=== PATIENT | male | born 1955 | race Caucasian/White ===

== ENCOUNTER 2016-09-29 13:00 | Emergency (ER) | payer OTHER ==
--- NOTE | 2016-09-29 15:10 | ED ORDER SUMMARY ---
..... Patient: UMESH RAMAN OrderSheet [facility] VisitID: [id number] [place] [address] 61y, M Registration Date/Time: 09/29/2016 ORDER SHEET Weight: 65.7 kg (estimated) Allergies: No Known Drug Allergy GENERAL ORDERS: UA-Culture if indicated Urgent (13:08 09/29/2016 EKoroleva P.A.-C) (Ack 13:10 LMuller) (14:30 HOShaughnessy R.N.) Breathalyzer (13:08 09/29/2016 EKoroleva P.A.-C) (Ack 13:10 LMuller) (Cancelled: Other13:23 EKoroleva P.A.-C) CBC w Diff Urgent (13:22 09/29/2016 EKoroleva P.A.-C) (Ack 13:28 LMuller) (14:18 HOShaughnessy R.N.) CMP Urgent (13:22 09/29/2016 EKoroleva P.A.-C) (Ack 13:28 LMuller) (14:18 HOShaughnessy R.N.) Breathalyzer (13:22 09/29/2016 EKoroleva P.A.-C) (Cancelled: Other13:22 EKoroleva P.A.-C) Ethyl Alcohol Urgent (13:33 09/29/2016 EKoroleva P.A.-C) (Ack 13:36 LMuller) (14:18 HOShaughnessy R.N.) Urine Drug Screen Urgent (14:12 09/29/2016 EKoroleva P.A.-C) (Ack 14:20 LMuller) (14:30 HOShaughnessy R.N.) MEDICATION ORDERS: Toradol IM 60 mg (NOW) (14:11 09/29/2016 EKoroleva P.A.-C) (14:30 HOShaughnessy R.N.) IV FLUIDS: ORDER SHEET NOTES: [Electronically signed by Karyn Rosario P.A.-C (15:30 09/29/2016)] [Electronically signed by Aureliano Nazario R.N. (15:42 09/29/2016)] [Electronically locked/signed by Aureliano Nazario R.N. (15:42 09/29/2016)]
--- NOTE | 2016-09-29 15:10 | ED ORDER SUMMARY ---
..... Patient: UMESH RAMAN OrderSheet [facility] VisitID: [id number] [place] [address] 61y, M Registration Date/Time: 09/29/2016 ORDER SHEET Weight: 65.7 kg (estimated) Allergies: No Known Drug Allergy GENERAL ORDERS: UA-Culture if indicated Urgent (13:08 09/29/2016 EKoroleva P.A.-C) (Ack 13:10 LMuller) (14:30 HOShaughnessy R.N.) Breathalyzer (13:08 09/29/2016 EKoroleva P.A.-C) (Ack 13:10 LMuller) (Cancelled: Other13:23 EKoroleva P.A.-C) CBC w Diff Urgent (13:22 09/29/2016 EKoroleva P.A.-C) (Ack 13:28 LMuller) (14:18 HOShaughnessy R.N.) CMP Urgent (13:22 09/29/2016 EKoroleva P.A.-C) (Ack 13:28 LMuller) (14:18 HOShaughnessy R.N.) Breathalyzer (13:22 09/29/2016 EKoroleva P.A.-C) (Cancelled: Other13:22 EKoroleva P.A.-C) Ethyl Alcohol Urgent (13:33 09/29/2016 EKoroleva P.A.-C) (Ack 13:36 LMuller) (14:18 HOShaughnessy R.N.) Urine Drug Screen Urgent (14:12 09/29/2016 EKoroleva P.A.-C) (Ack 14:20 LMuller) (14:30 HOShaughnessy R.N.) MEDICATION ORDERS: Toradol IM 60 mg (NOW) (14:11 09/29/2016 EKoroleva P.A.-C) (14:30 HOShaughnessy R.N.) IV FLUIDS: ORDER SHEET NOTES: [Electronically signed by Karyn Rosario P.A.-C (15:30 09/29/2016)] [Electronically signed by Aureliano Nazario R.N. (15:42 09/29/2016)] [Electronically locked/signed by Aureliano Nazario R.N. (15:42 09/29/2016)]
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
--- NOTE | 2016-09-29 15:42 | ED MAR SUMMARY ---
..... Medication Administration Record [facility] [address] [place] [address] Patient: UMESH RAMAN Visit ID: [id number] 61y, M Weight: 65.7 kg Height/Length: 71 in BMI: 20.2 ALLERGIES: No Known Drug Allergy Given 14:30 09/29/2016 Aureliano Nazario, RBerlinNBerlin Medication Administered: TORADOL [IM] (KETOROLAC TROMETHAMINE), Dose: 60 mg IM. Medication Ordered: Toradol IM 60 mg (NOW).
--- NOTE | 2016-09-29 15:42 | ED MAR SUMMARY ---
..... Medication Administration Record [facility] [address] [place] [address] Patient: UMESH RAMAN Visit ID: [id number] 61y, M Weight: 65.7 kg Height/Length: 71 in BMI: 20.2 ALLERGIES: No Known Drug Allergy Given 14:30 09/29/2016 Aureliano Nazario, RBerlinNBerlin Medication Administered: TORADOL [IM] (KETOROLAC TROMETHAMINE), Dose: 60 mg IM. Medication Ordered: Toradol IM 60 mg (NOW).
--- NOTE | 2016-09-29 15:42 | ED MED RECONCILIATION SUMMARY ---
Patient: UMESH RAMAN Medication Reconciliation Report [facility] VisitID: [id number] [place] [address] 61y, M Registration Date/Time: 09/29/2016 Weight: 65.7 kg Height/Length: 71 in. BMI: 20.2 ALLERGIES: No Known Drug Allergy The patient's Home Medications are listed below: THE FOLLOWING MEDICATIONS NEED TO BE RECONCILED: Carbidopa-Levodopa Oral Pyridostigmine [place] ER Oral The source(s) of the original Home Medication information: Not obtained. The following Medications were given to the patient in the Emergency Department: Toradol [IM] IM 60 mg, administered: 09/29/2016 2:30:00 PM The following Medications were prescribed to the patient: Ibuprofen 800 mg tablets: take 1 tablet orally every 8 hours for 5 days. Dispense fifteen (15). No refill. -- Karyn Rosario, PBerlinABerlin-C
--- NOTE | 2016-09-29 15:42 | ED DISCHARGE INSTRUCTIONS ---
Patient: UMESH RAMAN General Instructions [facility] VisitID: [id number] [place] [address] 61y, M Registration Date/Time: 09/29/2016 Chronic lumbar back pain. INSTRUCTIONS Apply ice. Rest. Prescription Medications: Ibuprofen 800 mg tablets: take 1 tablet orally every 8 hours for 5 days. Dispense fifteen (15). No refill. Follow-up: Follow up with your doctor Tuesday in three days. Understanding of the discharge instructions verbalized by patient. ADDITIONAL INFORMATION Back Pain [Acute Or Chronic] Back pain is usually caused by an injury to the muscles or ligaments of the spine. Sometimes the disks that separate each bone in the spine may bulge and cause pain by pressing on a nearby nerve. Back pain may also appear after a sudden twisting/bending force (such as in a car accident), after a simple awkward movement, or lifting something heavy with poor body positioning. In either case, muscle spasm is often present and adds to the pain. Acute back pain usually gets better in one to two weeks. Back pain related to disk disease, arthritis in the spinal joints or spinal stenosis (narrowing of the spinal canal) can become chronic and last for months or years. Unless you had a physical injury (for example, a car accident or fall) X-rays are usually not ordered for the initial evaluation of back pain. If pain continues and does not respond to medical treatment, x-rays and other tests may be performed at a later time. Home Care: You may need to stay in bed the first few days. But, as soon as possible, begin sitting or walking to avoid problems with prolonged bed rest (muscle weakness, worsening back stiffness and pain, blood clots in the legs). When in bed, try to find a position of comfort. A firm mattress is best. Try lying flat on your back with pillows under your knees. You can also try lying on your side with your knees bent up towards your chest and a pillow between your knees. Avoid prolonged sitting. This puts more stress on the lower back than standing or walking. During the first two days after injury, apply an ICE PACK to the painful area for 20 minutes every 2-4 hours. This will reduce swelling and pain. HEAT (hot shower, hot bath or heating pad) works well for muscle spasm. You can start with ice, then switch to heat after two days. Some patients feel best alternating ice and heat treatments. Use the one method that feels the best to you. You may use acetaminophen (Tylenol) or ibuprofen (Motrin, Advil) to control pain, unless another pain medicine was prescribed. [NOTE: If you have chronic liver or kidney disease or ever had a stomach ulcer or GI bleeding, talk with your doctor before using these medicines.] Be aware of safe lifting methods and do not lift anything over 15 pounds until all the pain is gone. Follow Up with your doctor or this facility if your symptoms do not start to improve after one week. Physical therapy may be needed. [NOTE: If X-rays were taken, they will be reviewed by a radiologist. You will be notified of any new findings that may affect your care.] Get Prompt Medical Attention if any of the following occur: Pain becomes worse or spreads to your legs Weakness or numbness in one or both legs Loss of bowel or bladder control Numbness in the groin or genital area Alcohol Intoxication Alcohol intoxication occurs when you drink alcohol faster than your liver can remove it from your system. Alcohol intoxication affects your judgment and coordination. Very high blood alcohol levels can cause coma, very slow breathing and even . If you drink alcohol every day, this may gradually cause permanent damage to your liver, brain, heart, pancreas and other organs. Alcohol use during may cause permanent damage to the growing baby. Home Care: Do not drink any more alcohol. DO NOT DRIVE until all effects of the alcohol have worn off. Get lots of rest over the next few days. Drink plenty of water and other non-alcoholic liquids. Try to eat regular meals. If you have been drinking heavily on a daily basis, you may go through alcohol withdrawl. This is also called the shakes or DTs. The usual symptoms last 3 to 4 days and may include nervousness, shakiness, nausea, sweating or sleeplessness. During this time, it is best that you stay with family or friends who can help and support you. You can also admit yourself to a residential detox program. If your symptoms are severe, contact your doctor for medicines to help. Follow Up: If alcohol is causing a problem in your life, these and other organizations can help you: Alcoholics Anonymous offers support through a self-help fellowship. There are no dues or fees. See the Yellow Pages and call for time and place of meetings. www.aa.org Al-Anon offers support to families of alcohol users. 960.510.9228 www.al-anon.org [employer] [place] On Alcoholism And Drug Dependence 458-256-4412 www.ncadd.org There are also inpatient or residential alcohol detox programs. Check the Internet or phonebook Yellow Pages under Drug Abuse & Treatment Centers. Get Prompt Medical Attention if any of the following occur: there) Alcohol Withdrawal Alcohol withdrawal symptoms occur if you have been drinking steadily for at least several days, and your body gets used to the effect of alcohol. When you suddenly stop drinking (or, even just cut down your daily intake but continue to drink), you may develop alcohol withdrawal, also called the The usual symptoms last 3-4 days and include nervousness, shakiness, nausea, sweating, sleeplessness. In severe cases hallucinations (seeing things that are not there) and seizures can occur. Home Care: You will need plenty of rest and fluids over the next several days. Eat regular meals. Of course, do not drink any more alcohol. During this time, it is best that you stay with family or friends who can help and support you. You can also admit yourself to a residential detox program. Do not drive until all symptoms are gone and you are feeling better. If you were given sedative medication to reduce your symptoms, do not take it more often than prescribed and never take it with alcohol. Follow Up: Once you have gone through the withdrawal symptoms, you have fought half of the cano. To avoid the risk of returning to your previous drinking pattern, it is essential that you get follow-up support and treatment. Alcoholics Anonymous offers support through a self-help fellowship. There are no dues or fees. See the Yellow Pages and call for time and place of meetings. www.aa.org Al-Anon offers support to families of alcohol users. 686.177.3511 www.al-anon.org [employer] [place] On Alcoholism And Drug Dependence 053-953-2127 www.ncadd.org Residential alcohol detox programs are available. Check the Yellow Pages under Drug Abuse & Treatment Centers. Get Prompt Medical Attention if any of the following occur: Severe shakiness Hallucinations Seizure Fever over 100.5 F (38.0 C) oral Headache, confusion, extreme drowsiness, inability to awaken Increasing upper abdominal pain Repeated vomiting or vomiting blood Ibuprofen Oral tablet What is this medicine? IBUPROFEN (eye BYOO proe fen) is a non-steroidal anti-inflammatory drug (NSAID). It is used for dental pain, fever, headaches or migraines, osteoarthritis, rheumatoid arthritis, or painful monthly periods. It can also relieve minor aches and pains caused by a cold, flu, or sore throat. How should I use this medicine? Take this medicine by mouth with a glass of water. Follow the directions on the prescription label. Take this medicine with food if your stomach gets upset. Try to not lie down for at least 10 minutes after you take the medicine. Take your medicine at regular intervals. Do not take your medicine more often than directed. A special MedGuide will be given to you by the pharmacist with each prescription and refill. Be sure to read this information carefully each time. Talk to your instrumentation and control technician regarding the use of this medicine in children. Special care may be needed. What side effects may I notice from receiving this medicine? Side effects that you should report to your doctor or health career guidance technician as soon as possible: allergic reactions like skin rash, itching or hives, swelling of the face, lips, or tongue black or bloody stools, blood in the urine or in vomit breathing problems changes in vision chest pain general ill feeling or flu-like symptoms nausea or vomiting redness, blistering, peeling or loosening of the skin, including inside the mouth slurred speech or weakness on one side of the body stomach pain unexplained weight gain or swelling unusually weak or tired yellowing of eyes or skin Side effects that usually do not require medical attention (report to your doctor or health career guidance technician if they continue or are bothersome): constipation or diarrhea dizziness gas or heartburn stomach upset What may interact with this medicine? Do not take this medicine with any of the following medications: cidofovir ketorolac methotrexate pemetrexed This medicine may also interact with the following medications: alcohol aspirin diuretics lithium other drugs for inflammation like prednisone warfarin What if I miss a dose? If you miss a dose, take it as soon as you can. If it is almost time for your next dose, take only that dose. Do not take double or extra doses. Where should I keep my medicine? Keep out of the reach of children. Store at room temperature between 15 and 30 degrees C (59 and 86 degrees F). Keep container tightly closed. Throw away any unused medicine after the expiration date. What should I tell my health care provider before I take this medicine? They need to know if you have any of these conditions: asthma cigarette smoker drink more than 3 alcohol containing drinks a day heart disease or circulation problems such as heart failure or leg edema (fluid retention) high blood pressure kidney disease liver disease stomach bleeding or ulcers an unusual or allergic reaction to ibuprofen, aspirin, other NSAIDS, other medicines, foods, dyes, or preservatives or trying to get breast-feeding What should I watch for while using this medicine? Tell your doctor or healthcare professional if your symptoms do not start to get better or if they get worse. This medicine does not prevent heart attack or stroke. In fact, this medicine may increase the chance of a heart attack or stroke. The chance may increase with longer use of this medicine and in people who have heart disease. If you take aspirin to prevent heart attack or stroke, talk with your doctor or health career guidance technician. Do not take other medicines that contain aspirin, ibuprofen, or naproxen with this medicine. Side effects such as stomach upset, nausea, or ulcers may be more likely to occur. Many medicines available without a prescription should not be taken with this medicine. This medicine can cause ulcers and bleeding in the stomach and intestines at any time during treatment. Ulcers and bleeding can happen without warning symptoms and can cause . To reduce your risk, do not smoke cigarettes or drink alcohol while you are taking this medicine. You may get drowsy or dizzy. Do not drive, use machinery, or do anything that needs mental alertness until you know how this medicine affects you. Do not stand or sit up quickly, especially if you are an older patient. This reduces the risk of dizzy or fainting spells. This medicine can cause you to bleed more easily. Try to avoid damage to your teeth and gums when you brush or floss your teeth. You have been given the following additional information: Back Pain (Acute Or Chronic) Alcohol Intoxication Alcohol Withdrawal Ibuprofen Oral tablet Rest. (Electronically signed by Karyn Rosario P.A.-C 09/29/2016 15:30)
--- NOTE | 2016-09-29 15:42 | ED MED RECONCILIATION SUMMARY ---
Patient: UMESH RAMAN Medication Reconciliation Report [facility] VisitID: [id number] [place] [address] 61y, M Registration Date/Time: 09/29/2016 Weight: 65.7 kg Height/Length: 71 in. BMI: 20.2 ALLERGIES: No Known Drug Allergy The patient's Home Medications are listed below: THE FOLLOWING MEDICATIONS NEED TO BE RECONCILED: Carbidopa-Levodopa Oral Pyridostigmine [place] ER Oral The source(s) of the original Home Medication information: Not obtained. The following Medications were given to the patient in the Emergency Department: Toradol [IM] IM 60 mg, administered: 09/29/2016 2:30:00 PM The following Medications were prescribed to the patient: Ibuprofen 800 mg tablets: take 1 tablet orally every 8 hours for 5 days. Dispense fifteen (15). No refill. -- Karyn Rosario, PBerlinABerlin-C
== END 2016-09-29 15:40 | disposition home or self-care (01) ==
LOC: ED SRH 13:00
DX: G89.29 Other chronic pain (principal); M54.5 Low back pain
CPT/HCPCS: 90004; 90074; 90100; 92010; 92760; 92761; 92762; 92763; 92764; 92765; 92766; 92767; 95059

== ENCOUNTER 2016-10-09 19:04 | Emergency (ER) | payer OTHER ==
--- NOTE | 2016-10-09 19:41 | DIAGNOSTIC IMAGING REPORT ---
PROCEDURE: CT HEAD WITHOUT CONTRAST INDICATION: Ground level fall with headache, initial encounter TECHNIQUE: Noncontrast axial images with sagittal and coronal reformations. COMPARISON: Head CT 08/23/2016. FINDINGS: Mild cortical atrophy and mild white matter chronic ischemic changes. Ventricular system is normal. No evidence of acute intracranial process. Visualized mastoids and sinuses are clear. IMPRESSION: 1. No acute intracranial abnormality 2. Mild atrophy and white matter chronic ischemic changes 3. Findings discussed with Mario BEACH, at 07:40 p.m., [facility] Time
--- NOTE | 2016-10-09 22:38 | ED ORDER SUMMARY ---
..... Patient: UMESH RAMAN OrderSheet [facility] VisitID: [id number] [address] [place] [address] 61y, M Registration Date/Time: 10/09/2016 ORDER SHEET Weight: 56.6 kg (stated) Allergies: No Known Drug Allergy GENERAL ORDERS: CT Head wo Cont Urgent (19:12 10/09/2016 EKoroleva P.A.-C) (Ack 19:18 ALawrence ER Tech1) (19:38 RFay) CBC w Diff Urgent (19:12 10/09/2016 EKoroleva P.A.-C) (Ack 19:18 ALawrence ER Tech1) (20:26 JDeElena R.N.) BMP Urgent (19:12 10/09/2016 EKoroleva P.A.-C) (Ack 19:18 ALawrence ER Tech1) (20:26 JDeElena R.N.) Ethyl Alcohol Urgent (19:12 10/09/2016 EKoroleva P.A.-C) (Ack 19:18 ALawrence ER Tech1) (20:26 JDeElena R.N.) MEDICATION ORDERS: IV FLUIDS: IV NS with Folic Acid 1 mg/L, Thiamine HCl 100 mg/L: initial bolus 1000 mL (1000 mL/hr), then 1000 mL/hr for X1 (NOW); Vini (20:34 10/09/2016 EKoroleva P.A.-C) (Ack 20:41 HSoule) (21:01 HSoule) Multivitamin IV 10 mL (NOW) (20:49 10/09/2016 EKoroleva P.A.-C) (Cancelled: Other medication added to fluids and infused with other additives 21:02 HSoule) ORDER SHEET NOTES: [Electronically signed by Doug Honeycutt R.N. (01:14 10/10/2016)] [Electronically signed by Karyn Rosario P.A.-C (13:43 10/10/2016)] [Electronically locked/signed by Doug Honeycutt R.N. (:14 10/10/2016)]
--- NOTE | 2016-10-09 22:38 | ED NURSING NOTES ---
Clinical Report - Nurses Merged With [facility] [place] [address] 10/09/2016 19:03 [id number] Triage time 19:00 Oct 09 2016. Acuity: LEVEL 4. Chief Complaint: (Back Pain). SEPSIS SCREEN: Sepsis Screen: negative. Negative (no infection suspected/documented). JOANNA COMA SCORE: [place] Coma Scale: 15- eyes open spontaneously (4); best verbal response- oriented x 4 (5); best motor response- obeys commands (6). --19:17 Zainab Pratt 19:09 10/09/16. BP: 102/77. HR: 82. RR: 20. O2 saturation: 98% on room air. Pain level now: 06/07. --19:17 Zainab Pratt. Weight: 56.6 kg stated. Height/Length: 70 inches Per Patient. BMI: 17.9. --19:14 Zainab Pratt. Medications Carbidopa-Levodopa Oral. --19:12 Zainab Pratt Pyridostigmine [place] ER Oral. --19:12 Zainab Pratt Multivitamins Oral. --20:27 Doug Honeycutt RBerlinN. Medication/allergy information source: the patient and EMS. --19:17 Zainab Pratt. Allergies No Known Drug Allergy. --19:12 Zainab Pratt. History Arrived by EMS. Historian: EMS and patient. Unaccompanied. Primary physician (none). This is a recurrent problem. ( Patient arrived to ER with EMS and reports back pain in his lumbar sacral area. He reports Parkinson's disease as well as chronic alcohol use to manage his pain. EMS reports they were called for pain as well as nausea. Patient denies nausea but is dry heaving at bedside. Patient agitated with nursing staff for asking questions and states, "I am getting tired of this".). Treatment SQL PROGRAMMER: EMS treatment SQL PROGRAMMER verbally communicated and report reviewed. See report. ( EMS reports finding additional meds at patient home including temazepam and hydrocodone. EMS report patient also has albuterol inhaler at bedside but patient denies use of this med.). PAST MEDICAL HX: Immunizations: up-to-date. SOCIAL HX: Heavy tobacco smoker (cigarette)- 1 pack per day. Heavy alcohol use. Patient is a longstanding alcoholic. Patient smells of ETOH in the emergency department. No infectious disease exposure. ABUSE ASSESSMENT: No report of abuse. NUTRITIONAL RISK ASSESSMENT: The nutritional risk assessment revealed no deficiencies. LEARNING NEEDS ASSESSMENT: The learning needs assessment revealed no barriers. FALL RISK ASSESSMENT: Fall risk assessment completed. Risk factors identified include patient history of fall and impairment of mobility. Fall interventions initiated. Patient placed on stretcher. Side rails up x1. Brakes on Bed in low position. Patient visible from nurses' station. Call light in reach of patient. Instructed not to get up without assistance. FUNCTIONAL ASSESSMENT: Functional assessment performed: independent with the activities of daily living; mobility impairment present- this mobility impairment is an ongoing problem. Electric scooter. SKIN INTEGRITY ASSESSMENT: Skin integrity risk assessment completed. No skin integrity risk identified. --19:17 Zainab Pratt. PROBLEMS: Back Pain. Gallbladder Disease. Abnormal Liver Function Test. COPD - Chronic Obstructive Pulmonary Disease. Parkinson's Disease. Atrial Fibrillation. Lifestyle / Substance Problems. Meniere's Syndrome. Lung Disease. Neurological Disease. Alcoholism. Head Injury. Fall. Alcohol Intoxication. --19:13 Zainab Pratt. ADDITIONAL SURGERIES: Ankle surgery. Shoulder Surgery. --19:13 Zainab Pratt. Interventions ID band on patient. To treatment room. --19:17 Zainab Pratt. PHYSICAL ASSESSMENT To room via stretcher. Patient gowned. GENERAL / NEURO / PSYCH: Alert. He smells of alcohol and appears agitated. The patient is disoriented to situation. Mood/affect abnormal (frustrated). HEENT: No facial asymmetry noted. Mucous membranes are pink. RESPIRATORY: Respirations not labored. CVS: Normal sinus rhythm noted. GI / : Abdomen soft and nontender. SKIN: Skin is warm and dry. --19:19 Zainab Pratt. NURSING PROGRESS NOTES Pulse oximeter and NIBP monitor placed on patient; monitor alarms on. Patient gowned. Reassurance given to the patient. Patient transported to radiology by stretcher with [employer] (19:15 Oct 09 2016). Two patient identifiers checked. Call light placed in reach. Side rails up x 1. Bed placed in lowest position. Brakes of bed on. Patient ready for evaluation- chart flagged and ED physician notified. --19:19 Zainab Pratt ( Patient given PO fluids). --19:55 Zainab Pratt Assisted patient to bedside commode and back to bed; tolerated well. --20:26 Doug Honeycutt R.N. 20:51 10/09/2016 Site #1 started via IV in the right forearm with an 20g angiocath, with aseptic technique and good blood return; one attempt. Blood drawn. Saline lock flushed with 10 mL saline. --21:01 Zainab Pratt 21:01 10/09/2016 Started bag #1 1000 mL IV Fluids IV NS (Saline); at 1000 mL/hr with Multivitamin [IVPB] 1unit dose, Folic Acid [IVPB] 1mg and Thiamine [IVP] 100mg over 1 hour(s) via site #1. Allergies verified and confirmed 5 rights. IV patency established. IV site checked: no pain, redness, or swelling. IV flushed thoroughly pre- and post-medication administration. --21:01 Zainab Pratt 21:02 10/09/16. BP: 98/60. HR: 83. RR: 20. O2 saturation: 100% on room air. Pain level now: 06/07. --21:02 Zainab Pratt The patient is resting quietly and sleeping. --22:05 Zainab Pratt 22:00 10/09/2016 IV Fluids IV NS Discontinued: bag #1 completed. Total amount infused: 1000 mL. IV patency established. IV site checked: no pain, redness, or swelling. IV flushed thoroughly. --22:14 Zainab Pratt 22:14 10/09/2016 Started bag #2 1000 mL IV Fluids IV NS (Saline); at 1000 mL/hr over 1 hour(s) via site #1. Allergies verified and confirmed 5 rights. IV patency established. IV site checked: no pain, redness, or swelling. IV flushed thoroughly pre- and post-medication administration. --22:14 Zainab Pratt 22:14 10/09/16. BP: 90/60. HR: 78. RR: 20. O2 saturation: 98% on room air. Pain level now: 06/07. --22:14 Zainab Pratt ( Warm blankets applied to lower back). --22:14 Zainab Pratt 23:40 10/09/16. BP: 96/64. HR: 66. RR: 20. O2 saturation: 96% on room air. Pain level now: 02/05. --23:48 Zainab Pratt ( Provider aware of vitals). --23:48 Zainab Pratt 23:15 10/09/2016 IV Fluids IV NS Discontinued: bag #2 completed. Total amount infused: 1000 mL. IV patency established. IV site checked: no pain, redness, or swelling. IV flushed thoroughly. --23:48 Zainab Pratt. DISPOSITION / DISCHARGE Departure time: 0106. Condition at departure: improved and stable. The goals identified in the patient's plan of care were met. No learning barriers present. Discharge instructions provided and reviewed with the patient. Activity restrictions (rest) reviewed. Patient verbalized understanding. Written instructions provided in Romanian. ( Umesh verbalizes understanding of all d/c instructions including need to f/u with PCP. He has no questions and voices no concerns at this time.). The patient was discharged by the physician. He was discharged home and unaccompanied at time of discharge. He left the Emergency Department in a wheelchair and via taxi ([employer] [facility] JOANNA COMA SCORE: [place] Coma Scale: 15- eyes open spontaneously (4); best verbal response- oriented x 4 (5); best motor response- obeys commands (6). --01:13 Doug Honeycutt R.N. 01:11 10/10/16. BP: 100/65 (small adult cuff) taken on the left arm, via an automated monitor, while lying. HR: 81 (normal rate). RR: 16 (regular, unlabored and normal). O2 saturation: 95% on room air. Temp: 98.5 F (oral). Pain level now: 02/05. --01:13 Doug Honeycutt R.N. 01:13 10/10/2016 Site #1 removed upon discharge. Catheter intact. Bandaid applied (Bleeding controlled.). --01:13 Doug Honeycutt R.N. Locked/Released at 10/10/2016 1:14 by Doug Honeycutt R.N.
--- NOTE | 2016-10-09 22:38 | ED CLINICAL REPORT ---
Clinical Report - Physicians/Mid Levels [facility] [address] [place] [place] [address] 10/09/2016 19:03 Patient: UMESH RAMAN Time Seen: 00:24 Oct 10 2016. Arrived- By ambulance. Historian- patient and EMS personnel. HISTORY OF PRESENT ILLNESS Chief Complaint: BACK PAIN. This started just prior to arrival and is still present. No weight loss or headache. (patient arrives in the ER by ambulance, reporting his chronic back pain, patient has been drinking today. He reports nausea. Denies si/hi. He reports frequent falls. Called 911, lives by him self). REVIEW OF SYSTEMS No fever, sinus drainage, cough, difficulty breathing or chest pain. No vomiting, diarrhea, chills, difficulty with urination or headache. No difficulty with ambulation. All systems otherwise negative, except as recorded above. SOCIAL HISTORY Alcohol use. ADDITIONAL NOTES The nursing notes have been reviewed. PHYSICAL EXAM Vital Signs: 10/09/2016 19:09 BP: 102/77. HR: 82. RR: 20. O2 saturation: 98%. Pain level now: 10/10. ENT: Nose normal. Pharynx normal. Neck: Normal inspection. CVS: Normal heart rate and rhythm. Heart sounds normal. Respiratory: No respiratory distress. No respiratory distress. Breath sounds normal. Chest nontender. No accessory muscle use. Abdomen: No visible injury. Soft. Bowel sounds normal. No abdominal tenderness. Back: Normal inspection. No CVA tenderness. Skin: Skin warm. Normal skin color. Neuro: Oriented X 3. LABS, X-RAYS, AND EKG CT Head: (IMPRESSION: 1. No acute intracranial abnormality 2. Mild atrophy and white matter chronic ischemic changes 3. Findings discussed with Mario BEACH, at 07:40 p.m., [place] Standard Time Electronically Final signed by:Marv Multani MD 10/09/2016 7:41:37 PM). Laboratory Tests: CBC w Diff: (DAYSI: 10/09/2016 19:55) ( MsgRcvd 10/09/2016 20:15) Final results Test Result Flag Units (Reference) WHITE BLOOD COUNT 6.8 K/uL (4.5-11.5) RED BLOOD COUNT 3.83 L M/uL (4.50-5.90) HEMOGLOBIN 13.1 L gm/dL (13.5-17.5) HEMATOCRIT 38.3 L % (41.0-53.0) MEAN CELL VOLUME 100 fL (80-100) MEAN CORPUSCULAR HGB 34 pg (26-34) MEAN CORPUSCULAR HGB CONC 34 g/dL (31-37) RED CELL DISTRIBUTION WIDTH 13.7 % (11.6-14.8) PLATELET COUNT 194 K/uL (150-400) NEUTROPHIL % 50.4 % (50-75) LYMPH % 41.0 H % (25-40) MONO % 7.6 % (3-14) EOSINOPHIL % 0.8 % (0-4) BASOPHIL % 0.2 % (0-2) BMP: (DAYSI: 10/09/2016 19:55) ( MsgRcvd 10/09/2016 20:24) Final results Test Result Flag Units (Reference) GLUCOSE 96 mg/dL (70-110) BUN 8 mg/dL (7-18) CREATININE 0.6 mg/dL (0.6-1.3) Estimated GFR >60 mL/min Estimated GFR- >60 mL/min Note: Persistent reduction over 3 months in eGFR<60 mL/min/1.73 m2 defines CKD. Patients with eGFR values>=60 mL/min/1.73 m2 may also have CKD if evidence ofpersistent proteinuria. Additional information may be foundat www.kidney.org. SODIUM 136 mmol/L (136-145) POTASSIUM 3.8 mmol/L (3.5-5.1) CHLORIDE 98 mmol/L (98-107) CARBON DIOXIDE 27 mmol/L (21-32) CALCIUM 9.3 mg/dL (8.5-10.1) ETHYL ALCOHOL 293 H mg/dL (3-10) . PROGRESS AND PROCEDURES Course of Care: Patient monitored in the ER for 6 hours, due to his alcohol nature. Given IV fluid. Head CT negative. Patient stable. Patient with history of Parkinson's, there has been no change. Patient is urged to follow up with his primary care provider. 10/10/2016 01:11 BP: 100/65. HR: 81. RR: 16. O2 saturation: 95%. Temp: 98.5 F. Pain level now: 6/10. Patient is stable. Physical exam findings are improved. Symptoms better. Patient/family counseled. Differential Diagnosis: I considered Musculo-skeletal strain, disk protrusion, facet syndrome, renal injury, osteoarthritis, ankylosing spondylitis, pancreatitis, endometriosis, epidural abscess and pyelonephritis as a possible cause of back pain in this patient. This is a partial list of diagnoses considered. Above considerations are based on history, physical exam and reassessment. Disposition: Discharged. CLINICAL IMPRESSION Substance abuse problems: abuse of alcohol. Substance dependence problems: dependence on alcohol. Chronic Back pain. INSTRUCTIONS Warnings: Further evaluation is necessary. (Electronically signed by Karyn Rosario P.A.-C 10/10/2016 13:43)
--- NOTE | 2016-10-09 22:38 | ED ORDER SUMMARY ---
..... Patient: UMESH RAMAN OrderSheet [facility] VisitID: [id number] [address] [place] [address] 61y, M Registration Date/Time: 10/09/2016 ORDER SHEET Weight: 56.6 kg (stated) Allergies: No Known Drug Allergy GENERAL ORDERS: CT Head wo Cont Urgent (19:12 10/09/2016 EKoroleva P.A.-C) (Ack 19:18 ALawrence ER Tech1) (19:38 RFay) CBC w Diff Urgent (19:12 10/09/2016 EKoroleva P.A.-C) (Ack 19:18 ALawrence ER Tech1) (20:26 JDeElena R.N.) BMP Urgent (19:12 10/09/2016 EKoroleva P.A.-C) (Ack 19:18 ALawrence ER Tech1) (20:26 JDeElena R.N.) Ethyl Alcohol Urgent (19:12 10/09/2016 EKoroleva P.A.-C) (Ack 19:18 ALawrence ER Tech1) (20:26 JDeElena R.N.) MEDICATION ORDERS: IV FLUIDS: IV NS with Folic Acid 1 mg/L, Thiamine HCl 100 mg/L: initial bolus 1000 mL (1000 mL/hr), then 1000 mL/hr for X1 (NOW); Vini (20:34 10/09/2016 EKoroleva P.A.-C) (Ack 20:41 HSoule) (21:01 HSoule) Multivitamin IV 10 mL (NOW) (20:49 10/09/2016 EKoroleva P.A.-C) (Cancelled: Other medication added to fluids and infused with other additives 21:02 HSoule) ORDER SHEET NOTES: [Electronically signed by Doug Honeycutt R.N. (01:14 10/10/2016)] [Electronically signed by Karyn Rosario P.A.-C (13:43 10/10/2016)] [Electronically locked/signed by Doug Honeycutt R.N. (:14 10/10/2016)]
--- NOTE | 2016-10-10 13:44 | ED MAR SUMMARY ---
..... Medication Administration Record [facility] [address] [place] [address] Patient: UMESH RAMAN Visit ID: [id number] 61y, M Weight: 56.6 kg Height/Length: 70 in BMI: 17.9 ALLERGIES: No Known Drug Allergy Start 21:01 10/09/2016 Zainab Pratt,, Stop 22:00 10/09/2016 Zainab Pratt, Medication Administered: IV NS (SALINE), Dose: IV Fluids over 1 hour(s), With: FOLIC ACID [IVPB] 1 mg; MULTIVITAMIN [IVPB] 1 unit dose; THIAMINE [IVP] 100 mg, Rate: 1000 mL/hr, Dispensed: 1000 mL bag, Site: #1 right forearm. Medication Ordered: IV NS with Folic Acid 1 mg/L, Thiamine HCl 100 mg/L: initial bolus 1000 mL (1000 mL/hr), then 1000 mL/hr for X1 (NOW); Vini. Start 22:14 10/09/2016 Zainab Pratt,, Stop 23:15 10/09/2016 Zainab Pratt, Medication Administered: IV NS (SALINE), Dose: IV Fluids over 1 hour(s), Rate: 1000 mL/hr, Dispensed: 1000 mL bag, Site: #1 right forearm. Medication Ordered: IV NS with Folic Acid 1 mg/L, Thiamine HCl 100 mg/L: initial bolus 1000 mL (1000 mL/hr), then 1000 mL/hr for X1 (NOW); Vini.
--- NOTE | 2016-10-10 13:44 | ED MED RECONCILIATION SUMMARY ---
Patient: UMESH RAMAN Medication Reconciliation Report [facility] VisitID: [id number] [address] [place] [address] 61y, M Registration Date/Time: 10/09/2016 Weight: 56.6 kg Height/Length: 70 in. BMI: 17.9 ALLERGIES: No Known Drug Allergy The patient's Home Medications are listed below: THE FOLLOWING MEDICATIONS NEED TO BE RECONCILED: Carbidopa-Levodopa Oral Multivitamins Oral Pyridostigmine [place] ER Oral The source(s) of the original Home Medication information: patient EMS The following Medications were given to the patient in the Emergency Department: IV NS IV Fluids bolus 0, then 1000 mL/hr with Folic Acid [IVPB] 1 mg, Multivitamin [IVPB] 1 unit dose and Thiamine [IVP] 100 mg, administered: 10/09/2016 9:01:00 PM IV NS IV Fluids bolus 0, then 1000 mL/hr, administered: 10/09/2016 10:14:00 PM The following Medications were prescribed to the patient: None.
--- NOTE | 2016-10-10 13:44 | ED DISCHARGE INSTRUCTIONS ---
Patient: UMESH RAMAN General Instructions [facility] VisitID: [id number] [place] [address] 61y, M Registration Date/Time: 10/09/2016 Substance abuse problems: abuse of alcohol. Substance dependence problems: dependence on alcohol. Chronic Back pain. INSTRUCTIONS Warnings: Further evaluation is necessary. ADDITIONAL INFORMATION Alcohol Intoxication Alcohol intoxication occurs when you drink alcohol faster than your liver can remove it from your system. Alcohol intoxication affects your judgment and coordination. Very high blood alcohol levels can cause coma, very slow breathing and even . If you drink alcohol every day, this may gradually cause permanent damage to your liver, brain, heart, pancreas and other organs. Alcohol use during may cause permanent damage to the growing baby. Home Care: Do not drink any more alcohol. DO NOT DRIVE until all effects of the alcohol have worn off. Get lots of rest over the next few days. Drink plenty of water and other non-alcoholic liquids. Try to eat regular meals. If you have been drinking heavily on a daily basis, you may go through alcohol withdrawl. This is also called the shakes or DTs. The usual symptoms last 3 to 4 days and may include nervousness, shakiness, nausea, sweating or sleeplessness. During this time, it is best that you stay with family or friends who can help and support you. You can also admit yourself to a residential detox program. If your symptoms are severe, contact your doctor for medicines to help. Follow Up: If alcohol is causing a problem in your life, these and other organizations can help you: Alcoholics Anonymous offers support through a self-help fellowship. There are no dues or fees. See the Yellow Pages and call for time and place of meetings. www.aa.org Al-Anon offers support to families of alcohol users. 360.944.3212 www.al-anon.org National [place] On Alcoholism And Drug Dependence 472-654-1549 www.ncadd.org There are also inpatient or residential alcohol detox programs. Check the Internet or phonebook Yellow Pages under Drug Abuse & Treatment Centers. Get Prompt Medical Attention if any of the following occur: there) You have been given the following additional information: Alcohol Intoxication (Electronically signed by Karyn Rosario P.A.-C 10/10/2016 13:43)
--- NOTE | 2016-10-10 13:44 | ED MAR SUMMARY ---
..... Medication Administration Record [facility] [address] [place] [address] Patient: UMESH RAMAN Visit ID: [id number] 61y, M Weight: 56.6 kg Height/Length: 70 in BMI: 17.9 ALLERGIES: No Known Drug Allergy Start 21:01 10/09/2016 Zainab Pratt,, Stop 22:00 10/09/2016 Zainab Pratt, Medication Administered: IV NS (SALINE), Dose: IV Fluids over 1 hour(s), With: FOLIC ACID [IVPB] 1 mg; MULTIVITAMIN [IVPB] 1 unit dose; THIAMINE [IVP] 100 mg, Rate: 1000 mL/hr, Dispensed: 1000 mL bag, Site: #1 right forearm. Medication Ordered: IV NS with Folic Acid 1 mg/L, Thiamine HCl 100 mg/L: initial bolus 1000 mL (1000 mL/hr), then 1000 mL/hr for X1 (NOW); Vini. Start 22:14 10/09/2016 Zainab Pratt,, Stop 23:15 10/09/2016 Zainab Pratt, Medication Administered: IV NS (SALINE), Dose: IV Fluids over 1 hour(s), Rate: 1000 mL/hr, Dispensed: 1000 mL bag, Site: #1 right forearm. Medication Ordered: IV NS with Folic Acid 1 mg/L, Thiamine HCl 100 mg/L: initial bolus 1000 mL (1000 mL/hr), then 1000 mL/hr for X1 (NOW); Vini.
--- NOTE | 2016-10-10 13:44 | ED MED RECONCILIATION SUMMARY ---
Patient: UMESH RAMAN Medication Reconciliation Report [facility] VisitID: [id number] [address] [place] [address] 61y, M Registration Date/Time: 10/09/2016 Weight: 56.6 kg Height/Length: 70 in. BMI: 17.9 ALLERGIES: No Known Drug Allergy The patient's Home Medications are listed below: THE FOLLOWING MEDICATIONS NEED TO BE RECONCILED: Carbidopa-Levodopa Oral Multivitamins Oral Pyridostigmine [place] ER Oral The source(s) of the original Home Medication information: patient EMS The following Medications were given to the patient in the Emergency Department: IV NS IV Fluids bolus 0, then 1000 mL/hr with Folic Acid [IVPB] 1 mg, Multivitamin [IVPB] 1 unit dose and Thiamine [IVP] 100 mg, administered: 10/09/2016 9:01:00 PM IV NS IV Fluids bolus 0, then 1000 mL/hr, administered: 10/09/2016 10:14:00 PM The following Medications were prescribed to the patient: None.
--- NOTE | 2016-10-10 13:44 | ED DISCHARGE INSTRUCTIONS ---
Patient: UMESH RAMAN General Instructions [facility] VisitID: [id number] [place] [address] 61y, M Registration Date/Time: 10/09/2016 Substance abuse problems: abuse of alcohol. Substance dependence problems: dependence on alcohol. Chronic Back pain. INSTRUCTIONS Warnings: Further evaluation is necessary. ADDITIONAL INFORMATION Alcohol Intoxication Alcohol intoxication occurs when you drink alcohol faster than your liver can remove it from your system. Alcohol intoxication affects your judgment and coordination. Very high blood alcohol levels can cause coma, very slow breathing and even . If you drink alcohol every day, this may gradually cause permanent damage to your liver, brain, heart, pancreas and other organs. Alcohol use during may cause permanent damage to the growing baby. Home Care: Do not drink any more alcohol. DO NOT DRIVE until all effects of the alcohol have worn off. Get lots of rest over the next few days. Drink plenty of water and other non-alcoholic liquids. Try to eat regular meals. If you have been drinking heavily on a daily basis, you may go through alcohol withdrawl. This is also called the shakes or DTs. The usual symptoms last 3 to 4 days and may include nervousness, shakiness, nausea, sweating or sleeplessness. During this time, it is best that you stay with family or friends who can help and support you. You can also admit yourself to a residential detox program. If your symptoms are severe, contact your doctor for medicines to help. Follow Up: If alcohol is causing a problem in your life, these and other organizations can help you: Alcoholics Anonymous offers support through a self-help fellowship. There are no dues or fees. See the Yellow Pages and call for time and place of meetings. www.aa.org Al-Anon offers support to families of alcohol users. 427.819.2614 www.al-anon.org National [place] On Alcoholism And Drug Dependence 364-643-4073 www.ncadd.org There are also inpatient or residential alcohol detox programs. Check the Internet or phonebook Yellow Pages under Drug Abuse & Treatment Centers. Get Prompt Medical Attention if any of the following occur: there) You have been given the following additional information: Alcohol Intoxication (Electronically signed by Karyn Rosario P.A.-C 10/10/2016 13:43)
== END 2016-10-10 01:06 | disposition home or self-care (01) ==
LOC: ED SRH 19:04
DX: F10.20 Alcohol dependence, uncomplicated (principal); M54.9 Dorsalgia, unspecified; G89.29 Other chronic pain; Z91.81 History of falling; G20 Parkinson's disease; Y90.8 Blood alcohol level of 240 mg/100 ml or more; J44.9 Chronic obstructive pulmonary disease, unspecified
CPT/HCPCS: 90047; 90074; 92010; 95059

== ENCOUNTER 2016-11-15 15:06 | Emergency (ER) | payer OTHER ==
--- NOTE | 2016-11-15 15:46 | ED ORDER SUMMARY ---
..... Patient: UMESH RAMAN OrderSheet [facility] VisitID: [id number] [address] [place] [address] 61y, M Registration Date/Time: 11/15/2016 ORDER SHEET Weight: 68.0 kg Allergies: No Known Drug Allergy GENERAL ORDERS: Vitals (BP) (15:44 11/15/2016 HBivens A.R.N.P.) (Ack 15:57 RMarsden R.N.) (15:57 RMarsden R.N.) MEDICATION ORDERS: Toradol IM 60 mg (NOW) (15:42 11/15/2016 HBivens A.R.N.P.) (Ack 15:57 RMarsden R.N.) (16:08 TChapman R.N.) IV FLUIDS: ORDER SHEET NOTES: [Electronically signed by Guy Zuñiga R.N. (17:47 11/15/2016)] [Electronically signed by Adriana LuR.N.P. (22:12 11/15/2016)] [Electronically locked/signed by Guy Zuñiga R.N. (17:47 11/15/2016)]
--- NOTE | 2016-11-15 15:46 | ED ORDER SUMMARY ---
..... Patient: UMESH RAMAN OrderSheet [facility] VisitID: [id number] [address] [place] [address] 61y, M Registration Date/Time: 11/15/2016 ORDER SHEET Weight: 68.0 kg Allergies: No Known Drug Allergy GENERAL ORDERS: Vitals (BP) (15:44 11/15/2016 HBivens A.R.N.P.) (Ack 15:57 RMarsden R.N.) (15:57 RMarsden R.N.) MEDICATION ORDERS: Toradol IM 60 mg (NOW) (15:42 11/15/2016 HBivens A.R.N.P.) (Ack 15:57 RMarsden R.N.) (16:08 TChapman R.N.) IV FLUIDS: ORDER SHEET NOTES: [Electronically signed by Guy Zuñiga R.N. (17:47 11/15/2016)] [Electronically signed by Adriana LuR.N.P. (22:12 11/15/2016)] [Electronically locked/signed by Guy Zuñiga R.N. (17:47 11/15/2016)]
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
--- NOTE | 2016-11-15 22:13 | ED MAR SUMMARY ---
..... Medication Administration Record [facility] [address] [place] [address] Patient: UMESH RAMAN Visit ID: [id number] 61y, M Weight: 68.0 kg Height/Length: 70 in BMI: 21.5 ALLERGIES: No Known Drug Allergy Given 16:08 11/15/2016 Debbie Raman R.N. Medication Administered: TORADOL [IM] (KETOROLAC TROMETHAMINE), Dose: 60 mg IM. Medication Ordered: Toradol IM 60 mg (NOW).
--- NOTE | 2016-11-15 22:13 | ED DISCHARGE INSTRUCTIONS ---
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 No radiculopathy, sciatica or neurological deficit. Uncomplicated alcohol intoxication with alcohol dependence. INSTRUCTIONS Warnings: GENERAL WARNINGS: Return or contact your physician immediately if your condition worsens or changes unexpectedly, if not improving as expected, or if other problems arise. SPECIFICALLY, return if you develop incontinence of urine (loss of bladder control). chest pain, trouble breathing. Prescription Medications: Naproxen 500 mg tablets: take 1 orally every 12 hours as needed for pain. Dispense twenty (20). No refills. Medrol Dosepak: take according to package directions. Dispense one (1) dosepak. No refills. Substitution is permissible. Follow-up: Follow up with your doctor in about one week as needed. Call for an appointment. Summary of care provided to patient. Understanding of the discharge instructions verbalized by patient. ADDITIONAL INFORMATION Back Pain [Acute Or Chronic] Back pain is usually caused by an injury to the muscles or ligaments of the spine. Sometimes the disks that separate each bone in the spine may bulge and cause pain by pressing on a nearby nerve. Back pain may also appear after a sudden twisting/bending force (such as in a car accident), after a simple awkward movement, or lifting something heavy with poor body positioning. In either case, muscle spasm is often present and adds to the pain. Acute back pain usually gets better in one to two weeks. Back pain related to disk disease, arthritis in the spinal joints or spinal stenosis (narrowing of the spinal canal) can become chronic and last for months or years. Unless you had a physical injury (for example, a car accident or fall) X-rays are usually not ordered for the initial evaluation of back pain. If pain continues and does not respond to medical treatment, x-rays and other tests may be performed at a later time. Home Care: You may need to stay in bed the first few days. But, as soon as possible, begin sitting or walking to avoid problems with prolonged bed rest (muscle weakness, worsening back stiffness and pain, blood clots in the legs). When in bed, try to find a position of comfort. A firm mattress is best. Try lying flat on your back with pillows under your knees. You can also try lying on your side with your knees bent up towards your chest and a pillow between your knees. Avoid prolonged sitting. This puts more stress on the lower back than standing or walking. During the first two days after injury, apply an ICE PACK to the painful area for 20 minutes every 2-4 hours. This will reduce swelling and pain. HEAT (hot shower, hot bath or heating pad) works well for muscle spasm. You can start with ice, then switch to heat after two days. Some patients feel best alternating ice and heat treatments. Use the one method that feels the best to you. You may use acetaminophen (Tylenol) or ibuprofen (Motrin, Advil) to control pain, unless another pain medicine was prescribed. [NOTE: If you have chronic liver or kidney disease or ever had a stomach ulcer or GI bleeding, talk with your doctor before using these medicines.] Be aware of safe lifting methods and do not lift anything over 15 pounds until all the pain is gone. Follow Up with your doctor or this facility if your symptoms do not start to improve after one week. Physical therapy may be needed. [NOTE: If X-rays were taken, they will be reviewed by a radiologist. You will be notified of any new findings that may affect your care.] Get Prompt Medical Attention if any of the following occur: Pain becomes worse or spreads to your legs Weakness or numbness in one or both legs Loss of bowel or bladder control Numbness in the groin or genital area Alcohol Intoxication Alcohol intoxication occurs when you drink alcohol faster than your liver can remove it from your system. Alcohol intoxication affects your judgment and coordination. Very high blood alcohol levels can cause coma, very slow breathing and even . If you drink alcohol every day, this may gradually cause permanent damage to your liver, brain, heart, pancreas and other organs. Alcohol use during may cause permanent damage to the growing baby. Home Care: Do not drink any more alcohol. DO NOT DRIVE until all effects of the alcohol have worn off. Get lots of rest over the next few days. Drink plenty of water and other non-alcoholic liquids. Try to eat regular meals. If you have been drinking heavily on a daily basis, you may go through alcohol withdrawl. This is also called the shakes or DTs. The usual symptoms last 3 to 4 days and may include nervousness, shakiness, nausea, sweating or sleeplessness. During this time, it is best that you stay with family or friends who can help and support you. You can also admit yourself to a residential detox program. If your symptoms are severe, contact your doctor for medicines to help. Follow Up: If alcohol is causing a problem in your life, these and other organizations can help you: Alcoholics Anonymous offers support through a self-help fellowship. There are no dues or fees. See the Yellow Pages and call for time and place of meetings. www.aa.org [facility] offers support to families of alcohol users. 331.614.5705 www.al-anon.org [employer] [place] On Alcoholism And Drug Dependence 203-626-0483 www.ncadd.org There are also inpatient or residential alcohol detox programs. Check the Internet or phonebook Yellow Pages under Drug Abuse & Treatment Centers. Get Prompt Medical Attention if any of the following occur: there) Naproxen Sodium Oral tablet What is this medicine? NAPROXEN (na PROX en) is a non-steroidal anti-inflammatory drug (NSAID). It is used to reduce swelling and to treat pain. This medicine may be used for dental pain, headache, or painful monthly periods. It is also used for painful joint and muscular problems such as arthritis, tendinitis, bursitis, and gout. How should I use this medicine? Take this medicine by mouth with a glass of water. Follow the directions on the prescription label. Take it with food if your stomach gets upset. Try to not lie down for at least 10 minutes after you take it. Take your medicine at regular intervals. Do not take your medicine more often than directed. Long-term, continuous use may increase the risk of heart attack or stroke. A special MedGuide will be given to you by the pharmacist with each prescription and refill. Be sure to read this information carefully each time. Talk to your public health staff nurse regarding the use of this medicine in children. Special care may be needed. What side effects may I notice from receiving this medicine? Side effects that you should report to your doctor or health respiratory care practitioner as soon as possible: black or bloody stools, blood in the urine or vomit blurred vision chest pain difficulty breathing or wheezing nausea or vomiting severe stomach pain skin rash, skin redness, blistering or peeling skin, hives, or itching slurred speech or weakness on one side of the body swelling of eyelids, throat, lips unexplained weight gain or swelling unusually weak or tired yellowing of eyes or skin Side effects that usually do not require medical attention (report to your doctor or health respiratory care practitioner if they continue or are bothersome): constipation headache heartburn What may interact with this medicine? alcohol aspirin cidofovir diuretics lithium methotrexate other drugs for inflammation like ketorolac or prednisone pemetrexed probenecid warfarin What if I miss a dose? If you miss a dose, take it as soon as you can. If it is almost time for your next dose, take only that dose. Do not take double or extra doses. Where should I keep my medicine? Keep out of the reach of children. Store at room temperature between 15 and 30 degrees C (59 and 86 degrees F). Keep container tightly closed. Throw away any unused medicine after the expiration date. What should I tell my health care provider before I take this medicine? They need to know if you have any of these conditions: asthma cigarette smoker drink more than 3 alcohol containing drinks a day heart disease or circulation problems such as heart failure or leg edema (fluid retention) high blood pressure kidney disease liver disease stomach bleeding or ulcers an unusual or allergic reaction to naproxen, aspirin, other NSAIDs, other medicines, foods, dyes, or preservatives or trying to get breast-feeding What should I watch for while using this medicine? Tell your doctor or health respiratory care practitioner if your pain does not get better. Talk to your doctor before taking another medicine for pain. Do not treat yourself. This medicine does not prevent heart attack or stroke. In fact, this medicine may increase the chance of a heart attack or stroke. The chance may increase with longer use of this medicine and in people who have heart disease. If you take aspirin to prevent heart attack or stroke, talk with your doctor or health respiratory care practitioner. Do not take other medicines that contain aspirin, ibuprofen, or naproxen with this medicine. Side effects such as stomach upset, nausea, or ulcers may be more likely to occur. Many medicines available without a prescription should not be taken with this medicine. This medicine can cause ulcers and bleeding in the stomach and intestines at any time during treatment. Do not smoke cigarettes or drink alcohol. These increase irritation to your stomach and can make it more susceptible to damage from this medicine. Ulcers and bleeding can happen without warning symptoms and can cause . You may get drowsy or dizzy. Do not drive, use machinery, or do anything that needs mental alertness until you know how this medicine affects you. Do not stand or sit up quickly, especially if you are an older patient. This reduces the risk of dizzy or fainting spells. This medicine can cause you to bleed more easily. Try to avoid damage to your teeth and gums when you brush or floss your teeth. Methylprednisolone Oral tablet What is this medicine? METHYLPREDNISOLONE (meth ill pred NISS oh lone) is a corticosteroid. It is commonly used to treat inflammation of the skin, joints, lungs, and other organs. Common conditions treated include asthma, allergies, and arthritis. It is also used for other conditions, such as blood disorders and diseases of the adrenal glands. How should I use this medicine? Take this medicine by mouth with a drink of water. Follow the directions on the prescription label. Take it with food or milk to avoid stomach upset. If you are taking this medicine once a day, take it in the morning. Do not take more medicine than you are told to take. Do not suddenly stop taking your medicine because you may develop a severe reaction. Your doctor will tell you how much medicine to take. If your doctor wants you to stop the medicine, the dose may be slowly lowered over time to avoid any side effects. Talk to your public health staff nurse regarding the use of this medicine in children. Special care may be needed. What side effects may I notice from receiving this medicine? Side effects that you should report to your doctor or health respiratory care practitioner as soon as possible: allergic reactions like skin rash, itching or hives, swelling of the face, lips, or tongue eye pain, decreased or blurred vision, or bulging eyes fever, sore throat, sneezing, cough, or other signs of infection, wounds that will not heal increased thirst mental depression, mood swings, mistaken feelings of self importance or of being mistreated pain in hips, back, ribs, arms, shoulders, or legs swelling of the ankles, feet, hands trouble passing urine or change in the amount of urine Side effects that usually do not require medical attention (report to your doctor or health respiratory care practitioner if they continue or are bothersome): confusion, excitement, restlessness headache nausea, vomiting skin problems, acne, thin and shiny skin weight gain What may interact with this medicine? Do not take this medicine with any of the following medications: mifepristone This medicine may also interact with the following medications: tacrolimus vaccines warfarin What if I miss a dose? If you miss a dose, take it as soon as you can. If it is almost time for your next dose, talk to your doctor or health respiratory care practitioner. You may need to miss a dose or take an extra dose. Do not take double or extra doses without advice. Where should I keep my medicine? Keep out of the reach of children. Store at room temperature between 20 and 25 degrees C (68 and 77 degrees F). Throw away any unused medicine after the expiration date. What should I tell my health care provider before I take this medicine? They need to know if you have any of these conditions: Dilcia's syndrome diabetes glaucoma heart problems or disease high blood pressure infection such as herpes, measles, tuberculosis, or chickenpox kidney disease liver disease mental problems myasthenia gravis osteoporosis seizures stomach ulcer or intestine disease including colitis and diverticulitis thyroid problem an unusual or allergic reaction to lactose, methylprednisolone, other medicines, foods, dyes, or preservatives or trying to get breast-feeding What should I watch for while using this medicine? Visit your doctor or health respiratory care practitioner for regular checks on your progress. If you are taking this medicine for a long time, carry an identification card with your name and address, the type and dose of your medicine, and your doctor's name and address. The medicine may increase your risk of getting an infection. Stay away from people who are sick. Tell your doctor or health respiratory care practitioner if you are around anyone with measles or chickenpox. If you are going to have surgery, tell your doctor or health respiratory care practitioner that you have taken this medicine within the last twelve months. Ask your doctor or health respiratory care practitioner about your diet. You may need to lower the amount of salt you eat. The medicine can increase your blood sugar. If you are a diabetic check with your doctor if you need help adjusting the dose of your diabetic medicine. You have been given the following additional information: Back Pain (Acute Or Chronic) Alcohol Intoxication Naproxen Sodium Oral tablet Methylprednisolone Oral tablet (Electronically signed by Adriana Lu A.R.N.P. 11/15/2016 22:12)
--- NOTE | 2016-11-15 22:13 | ED MED RECONCILIATION SUMMARY ---
Patient: UMESH RAMAN Medication Reconciliation Report [facility] VisitID: [id number] [address] [place] [address] 61y, M Registration Date/Time: 11/15/2016 Weight: 68.0 kg Height/Length: 70 in. BMI: 21.5 ALLERGIES: No Known Drug Allergy The patient's Home Medications are listed below: THE FOLLOWING MEDICATIONS NEED TO BE RECONCILED: Carbidopa-Levodopa Oral Multivitamins Oral Pyridostigmine [place] [facility] Oral The source(s) of the original Home Medication information: Not obtained. The following Medications were given to the patient in the Emergency Department: Toradol [IM] IM 60 mg, administered: 11/15/2016 4:08:00 PM The following Medications were prescribed to the patient: Naproxen 500 mg tablets: take 1 orally every 12 hours as needed for pain. Dispense twenty (20). No refills. -- Adriana Lu A.R.N.P. Medrol Dosepak: take according to package directions. Dispense one (1) dosepak. No refills. Substitution is permissible. -- Adriana Lu A.R.N.P.
--- NOTE | 2016-11-15 22:13 | ED MAR SUMMARY ---
..... Medication Administration Record [facility] [address] [place] [address] Patient: UMESH RAMAN Visit ID: [id number] 61y, M Weight: 68.0 kg Height/Length: 70 in BMI: 21.5 ALLERGIES: No Known Drug Allergy Given 16:08 11/15/2016 Debbie Raman R.N. Medication Administered: TORADOL [IM] (KETOROLAC TROMETHAMINE), Dose: 60 mg IM. Medication Ordered: Toradol IM 60 mg (NOW).
--- NOTE | 2016-11-15 22:13 | ED MED RECONCILIATION SUMMARY ---
Patient: UMESH RAMAN Medication Reconciliation Report [facility] VisitID: [id number] [address] [place] [address] 61y, M Registration Date/Time: 11/15/2016 Weight: 68.0 kg Height/Length: 70 in. BMI: 21.5 ALLERGIES: No Known Drug Allergy The patient's Home Medications are listed below: THE FOLLOWING MEDICATIONS NEED TO BE RECONCILED: Carbidopa-Levodopa Oral Multivitamins Oral Pyridostigmine [place] [facility] Oral The source(s) of the original Home Medication information: Not obtained. The following Medications were given to the patient in the Emergency Department: Toradol [IM] IM 60 mg, administered: 11/15/2016 4:08:00 PM The following Medications were prescribed to the patient: Naproxen 500 mg tablets: take 1 orally every 12 hours as needed for pain. Dispense twenty (20). No refills. -- Adriana Lu A.R.N.P. Medrol Dosepak: take according to package directions. Dispense one (1) dosepak. No refills. Substitution is permissible. -- Adriana Lu A.R.N.P.
--- NOTE | 2016-11-15 22:13 | ED DISCHARGE INSTRUCTIONS ---
Patient: UMESH RAMAN General Instructions 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 No radiculopathy, sciatica or neurological deficit. Uncomplicated alcohol intoxication with alcohol dependence. INSTRUCTIONS Warnings: GENERAL WARNINGS: Return or contact your physician immediately if your condition worsens or changes unexpectedly, if not improving as expected, or if other problems arise. SPECIFICALLY, return if you develop incontinence of urine (loss of bladder control). chest pain, trouble breathing. Prescription Medications: Naproxen 500 mg tablets: take 1 orally every 12 hours as needed for pain. Dispense twenty (20). No refills. Medrol Dosepak: take according to package directions. Dispense one (1) dosepak. No refills. Substitution is permissible. Follow-up: Follow up with your doctor in about one week as needed. Call for an appointment. Summary of care provided to patient. Understanding of the discharge instructions verbalized by patient. ADDITIONAL INFORMATION Back Pain [Acute Or Chronic] Back pain is usually caused by an injury to the muscles or ligaments of the spine. Sometimes the disks that separate each bone in the spine may bulge and cause pain by pressing on a nearby nerve. Back pain may also appear after a sudden twisting/bending force (such as in a car accident), after a simple awkward movement, or lifting something heavy with poor body positioning. In either case, muscle spasm is often present and adds to the pain. Acute back pain usually gets better in one to two weeks. Back pain related to disk disease, arthritis in the spinal joints or spinal stenosis (narrowing of the spinal canal) can become chronic and last for months or years. Unless you had a physical injury (for example, a car accident or fall) X-rays are usually not ordered for the initial evaluation of back pain. If pain continues and does not respond to medical treatment, x-rays and other tests may be performed at a later time. Home Care: You may need to stay in bed the first few days. But, as soon as possible, begin sitting or walking to avoid problems with prolonged bed rest (muscle weakness, worsening back stiffness and pain, blood clots in the legs). When in bed, try to find a position of comfort. A firm mattress is best. Try lying flat on your back with pillows under your knees. You can also try lying on your side with your knees bent up towards your chest and a pillow between your knees. Avoid prolonged sitting. This puts more stress on the lower back than standing or walking. During the first two days after injury, apply an ICE PACK to the painful area for 20 minutes every 2-4 hours. This will reduce swelling and pain. HEAT (hot shower, hot bath or heating pad) works well for muscle spasm. You can start with ice, then switch to heat after two days. Some patients feel best alternating ice and heat treatments. Use the one method that feels the best to you. You may use acetaminophen (Tylenol) or ibuprofen (Motrin, Advil) to control pain, unless another pain medicine was prescribed. [NOTE: If you have chronic liver or kidney disease or ever had a stomach ulcer or GI bleeding, talk with your doctor before using these medicines.] Be aware of safe lifting methods and do not lift anything over 15 pounds until all the pain is gone. Follow Up with your doctor or this facility if your symptoms do not start to improve after one week. Physical therapy may be needed. [NOTE: If X-rays were taken, they will be reviewed by a radiologist. You will be notified of any new findings that may affect your care.] Get Prompt Medical Attention if any of the following occur: Pain becomes worse or spreads to your legs Weakness or numbness in one or both legs Loss of bowel or bladder control Numbness in the groin or genital area Alcohol Intoxication Alcohol intoxication occurs when you drink alcohol faster than your liver can remove it from your system. Alcohol intoxication affects your judgment and coordination. Very high blood alcohol levels can cause coma, very slow breathing and even . If you drink alcohol every day, this may gradually cause permanent damage to your liver, brain, heart, pancreas and other organs. Alcohol use during may cause permanent damage to the growing baby. Home Care: Do not drink any more alcohol. DO NOT DRIVE until all effects of the alcohol have worn off. Get lots of rest over the next few days. Drink plenty of water and other non-alcoholic liquids. Try to eat regular meals. If you have been drinking heavily on a daily basis, you may go through alcohol withdrawl. This is also called the shakes or DTs. The usual symptoms last 3 to 4 days and may include nervousness, shakiness, nausea, sweating or sleeplessness. During this time, it is best that you stay with family or friends who can help and support you. You can also admit yourself to a residential detox program. If your symptoms are severe, contact your doctor for medicines to help. Follow Up: If alcohol is causing a problem in your life, these and other organizations can help you: Alcoholics Anonymous offers support through a self-help fellowship. There are no dues or fees. See the Yellow Pages and call for time and place of meetings. www.aa.org [facility] offers support to families of alcohol users. 941.538.9558 www.al-anon.org [employer] [place] [employer] Alcoholism And [employer] Dependence 266-520-6584 www.ncadd.org There are also inpatient or residential alcohol detox programs. Check the Internet or phonebook Yellow Pages under Drug Abuse & Treatment Centers. Get Prompt Medical Attention if any of the following occur: there) Naproxen Sodium Oral tablet What is this medicine? NAPROXEN (na PROX en) is a non-steroidal anti-inflammatory drug (NSAID). It is used to reduce swelling and to treat pain. This medicine may be used for dental pain, headache, or painful monthly periods. It is also used for painful joint and muscular problems such as arthritis, tendinitis, bursitis, and gout. How should I use this medicine? Take this medicine by mouth with a glass of water. Follow the directions on the prescription label. Take it with food if your stomach gets upset. Try to not lie down for at least 10 minutes after you take it. Take your medicine at regular intervals. Do not take your medicine more often than directed. Long-term, continuous use may increase the risk of heart attack or stroke. A special MedGuide will be given to you by the pharmacist with each prescription and refill. Be sure to read this information carefully each time. Talk to your automotive center manager regarding the use of this medicine in children. Special care may be needed. What side effects may I notice from receiving this medicine? Side effects that you should report to your doctor or health patient care representative as soon as possible: black or bloody stools, blood in the urine or vomit blurred vision chest pain difficulty breathing or wheezing nausea or vomiting severe stomach pain skin rash, skin redness, blistering or peeling skin, hives, or itching slurred speech or weakness on one side of the body swelling of eyelids, throat, lips unexplained weight gain or swelling unusually weak or tired yellowing of eyes or skin Side effects that usually do not require medical attention (report to your doctor or health patient care representative if they continue or are bothersome): constipation headache heartburn What may interact with this medicine? alcohol aspirin cidofovir diuretics lithium methotrexate other drugs for inflammation like ketorolac or prednisone pemetrexed probenecid warfarin What if I miss a dose? If you miss a dose, take it as soon as you can. If it is almost time for your next dose, take only that dose. Do not take double or extra doses. Where should I keep my medicine? Keep out of the reach of children. Store at room temperature between 15 and 30 degrees C (59 and 86 degrees F). Keep container tightly closed. Throw away any unused medicine after the expiration date. What should I tell my health care provider before I take this medicine? They need to know if you have any of these conditions: asthma cigarette smoker drink more than 3 alcohol containing drinks a day heart disease or circulation problems such as heart failure or leg edema (fluid retention) high blood pressure kidney disease liver disease stomach bleeding or ulcers an unusual or allergic reaction to naproxen, aspirin, other NSAIDs, other medicines, foods, dyes, or preservatives or trying to get breast-feeding What should I watch for while using this medicine? Tell your doctor or health patient care representative if your pain does not get better. Talk to your doctor before taking another medicine for pain. Do not treat yourself. This medicine does not prevent heart attack or stroke. In fact, this medicine may increase the chance of a heart attack or stroke. The chance may increase with longer use of this medicine and in people who have heart disease. If you take aspirin to prevent heart attack or stroke, talk with your doctor or health patient care representative. Do not take other medicines that contain aspirin, ibuprofen, or naproxen with this medicine. Side effects such as stomach upset, nausea, or ulcers may be more likely to occur. Many medicines available without a prescription should not be taken with this medicine. This medicine can cause ulcers and bleeding in the stomach and intestines at any time during treatment. Do not smoke cigarettes or drink alcohol. These increase irritation to your stomach and can make it more susceptible to damage from this medicine. Ulcers and bleeding can happen without warning symptoms and can cause . You may get drowsy or dizzy. Do not drive, use machinery, or do anything that needs mental alertness until you know how this medicine affects you. Do not stand or sit up quickly, especially if you are an older patient. This reduces the risk of dizzy or fainting spells. This medicine can cause you to bleed more easily. Try to avoid damage to your teeth and gums when you brush or floss your teeth. Methylprednisolone Oral tablet What is this medicine? METHYLPREDNISOLONE (meth ill pred NISS oh lone) is a corticosteroid. It is commonly used to treat inflammation of the skin, joints, lungs, and other organs. Common conditions treated include asthma, allergies, and arthritis. It is also used for other conditions, such as blood disorders and diseases of the adrenal glands. How should I use this medicine? Take this medicine by mouth with a drink of water. Follow the directions on the prescription label. Take it with food or milk to avoid stomach upset. If you are taking this medicine once a day, take it in the morning. Do not take more medicine than you are told to take. Do not suddenly stop taking your medicine because you may develop a severe reaction. Your doctor will tell you how much medicine to take. If your doctor wants you to stop the medicine, the dose may be slowly lowered over time to avoid any side effects. Talk to your automotive center manager regarding the use of this medicine in children. Special care may be needed. What side effects may I notice from receiving this medicine? Side effects that you should report to your doctor or health patient care representative as soon as possible: allergic reactions like skin rash, itching or hives, swelling of the face, lips, or tongue eye pain, decreased or blurred vision, or bulging eyes fever, sore throat, sneezing, cough, or other signs of infection, wounds that will not heal increased thirst mental depression, mood swings, mistaken feelings of self importance or of being mistreated pain in hips, back, ribs, arms, shoulders, or legs swelling of the ankles, feet, hands trouble passing urine or change in the amount of urine Side effects that usually do not require medical attention (report to your doctor or health patient care representative if they continue or are bothersome): confusion, excitement, restlessness headache nausea, vomiting skin problems, acne, thin and shiny skin weight gain What may interact with this medicine? Do not take this medicine with any of the following medications: mifepristone This medicine may also interact with the following medications: tacrolimus vaccines warfarin What if I miss a dose? If you miss a dose, take it as soon as you can. If it is almost time for your next dose, talk to your doctor or health patient care representative. You may need to miss a dose or take an extra dose. Do not take double or extra doses without advice. Where should I keep my medicine? Keep out of the reach of children. Store at room temperature between 20 and 25 degrees C (68 and 77 degrees F). Throw away any unused medicine after the expiration date. What should I tell my health care provider before I take this medicine? They need to know if you have any of these conditions: Dilcia's syndrome diabetes glaucoma heart problems or disease high blood pressure infection such as herpes, measles, tuberculosis, or chickenpox kidney disease liver disease mental problems myasthenia gravis osteoporosis seizures stomach ulcer or intestine disease including colitis and diverticulitis thyroid problem an unusual or allergic reaction to lactose, methylprednisolone, other medicines, foods, dyes, or preservatives or trying to get breast-feeding What should I watch for while using this medicine? Visit your doctor or health patient care representative for regular checks on your progress. If you are taking this medicine for a long time, carry an identification card with your name and address, the type and dose of your medicine, and your doctor's name and address. The medicine may increase your risk of getting an infection. Stay away from people who are sick. Tell your doctor or health patient care representative if you are around anyone with measles or chickenpox. If you are going to have surgery, tell your doctor or health patient care representative that you have taken this medicine within the last twelve months. Ask your doctor or health patient care representative about your diet. You may need to lower the amount of salt you eat. The medicine can increase your blood sugar. If you are a diabetic check with your doctor if you need help adjusting the dose of your diabetic medicine. You have been given the following additional information: Back Pain (Acute Or Chronic) Alcohol Intoxication Naproxen Sodium Oral tablet Methylprednisolone Oral tablet (Electronically signed by Adriana Lu A.R.N.P. 11/15/2016 22:12)
== END 2016-11-15 17:40 | disposition home or self-care (01) ==
LOC: ED SRH 15:06
DX: M43.06 Spondylolysis, lumbar region (principal); F10.120 Alcohol abuse with intoxication, uncomplicated; G89.29 Other chronic pain; J44.9 Chronic obstructive pulmonary disease, unspecified; F17.210 Nicotine dependence, cigarettes, uncomplicated